=== PATIENT | male | born 1945 | race African-American/Black ===

== ENCOUNTER → 2019-04-17 | Outpatient (CLI) | payer BC ==
[~2019-04-17] MED LIST: COZAAR 50 MG TA50 M2 PO; ELIQUIS5 M1 PO; FLOMAX0.4 MG PO; PERCOCET 5-3251 EACH PO; TOPROL XL50 MG PO
--- NOTE | 2019-04-17 14:48 | 2DMMODE ---
[facility] [place] [place] [address] 2 D/M-MODE ECHOCARDIOGRAM Name: FADY RUDOLPH Room #: REG CL [facility]#: [id number] Admission: 04/17/19 Attend Phys: Duane Schofield Discharge: Date of : 43 Date of Service: 04/17/19 1447 Report #: [id number] THIS REPORT FOR: //name// APPROVED REPORT Study performed: 04/17/2019 14:07:27 EXAM: Comprehensive 2D, Doppler, and color-flow Echocardiogram Patient Location: Out-Patient Status: routine BSA: 2.44 HR: 58 bpm BP: 108/70 mmHg Rhythm: NSR/Irregular Other Information Study Quality: Excellent Indications Atrial Fibrillation Fatigue Hx: HTN. 2D Dimensions RVDd: 45.90 mm IVSd: 13.95 (7-11mm) LVOT Diam: 23.99 (18-24mm) LVDd: 50.58 mm PWd: 8.89 (7-11mm) Ascending Ao: 41.29 (22-36mm) LVDs: 32.06 (25-40mm) Aortic Root: 41.30 mm Volumes Left Atrial Volume (Systole) Single Plane 4CH: 61.79 mL Single Plane 2CH: 54.12 mL LA ESV Index: 26.00 mL/m2 Aortic Valve AoV Peak Bernardino.: 1.50 m/s AO Peak Gr.: 9.00 mmHg LVOT Max P.76 mmHg LVOT Max V: 1.09 m/s XAVIER Vmax: 3.29 cm2 Mitral Valve E/A Ratio: 0.[address] [facility] [address] [place] [address] 2 D/M-MODE ECHOCARDIOGRAM Name: FADY RUDOLPH Room #: REG CL [facility]#: [id number] Admission: 04/17/19 Attend Phys: Duane Schofield Discharge: Date of : 43 Date of Service: 04/17/19 1447 Report #: [id number] MV Decel. Time: 302.96 ms MV E Max Bernardino.: 0.46 m/s MV A Bernardino.: 0.55 m/s MV PHT: 87.86 ms IVRT: 92.27 ms Pulmonary Valve PV Peak Bernardino.: 1.03 m/s PV Peak Gr.: 4.20 mmHg Pulmonary Vein P Vein S: 0.58 m/s P Vein A: 0.24 m/s P Vein D: 0.46 m/s P Vein A Dur.: 152.2 msec P Vein S/D Ratio: 1.26 Tricuspid Valve TR Peak Bernardino.: 2.15 m/s RAP Estimate: 5.00 mmHg TR Peak Gr.: 18.43 mmHg PA Pressure: 23.00 mmHg Left Ventricle The left ventricle is normal size. There is normal LV segmental wall motion. Moderate basal septal hypertrophy is present. Left ventricular systolic function is normal. LVEF is 55-60%. Mild diastolic dysfunction is present (impaired relaxation pattern). Right Ventricle Right ventricle is mildly dilated. The right ventricular systolic function is normal. Atria The left atrium size is normal. Right atrium is mildly dilated. Aortic Valve Aortic valve is trileaflet, mildly calcified. Trace aortic regurgitation. There is no aortic valvular stenosis. Mitral Valve The mitral valve is normal in structure. Mild mitral regurgitation. Tricuspid Valve The tricuspid valve is normal in structure. Mild to moderate tricuspid regurgitation. Estimated PAP is 25mmHg. [facility] [address] [place] [address] 2 D/M-MODE ECHOCARDIOGRAM Name: FADY RUDOLPH [facility]#: [id number] Admission: 04/17/19 Attend Phys: Duane Schofield Discharge: Date of : 43 Date of Service: 04/17/19 1447 Report #: [id number] Pulmonic Valve The pulmonary valve is normal in structure. Trace pulmonic regurgitation. Great Vessels Aortic root is dilated at 4.1cm. Ascending aorta is dilated at 4.1cm. IVC is normal in size and collapses >50% with inspiration. Pericardium There is no pericardial effusion. <Conclusion> The left ventricle is normal size. LVEF is 55-60%. Right ventricle is mildly dilated. Right atrium is mildly dilated. Aortic valve is trileaflet, mildly calcified. Trace aortic regurgitation. The mitral valve is normal in structure. Mild mitral regurgitation. The tricuspid valve is normal in structure. Mild to moderate tricuspid regurgitation. Estimated PAP is 25mmHg. The pulmonary valve is normal in structure. Trace pulmonic regurgitation. Ascending aorta is dilated at 4.1cm. Aortic root is dilated at 4.1cm. There is no pericardial effusion. <ELECTRONICALLY SIGNED> By: Hasmukh Rios MD 04/17/19 1447 1447 [id number] Hasmukh Rios MD /INF
== END ==
LOC: CV 10:29
DX: I08.1 Rheumatic disorders of both mitral and tricuspid valves (principal); I48.91 Unspecified atrial fibrillation; I10 Essential (primary) hypertension

== ENCOUNTER → 2019-10-16 | Outpatient (CLI) | payer BC | LOC: SJCVCIMAG 13:28 | DX: R09.89 Other specified symptoms and signs involving the circulatory and respiratory systems (principal) ==